=== PATIENT | female | born 1970 | race Two or more races ===

== ENCOUNTER 2019-04-18 08:56 | Emergency (ER) | payer BC ==
[~2019-04-18] VITALS: Ht 154.9 cm; Wt 83.2 kg
--- NOTE | 2019-04-18 09:24 | NUR ---
PT PRESENTS TO ED WITH C/O HEADACHE SINCE LAST NIGHT, AND MOMENTARY DIZZINESS PRIOR TO EMESIS THIS AM. PT NOW DENIES DIZZINESS, DENIES ABD PAIN, DENIES DYSURIA, DENIES FEVERS, DENIES SORE THROAT/COUGH. 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 EKG OBTAINED IN TRIAGE. ALL MONITORS IN PLACE. CALL LIGHT IN REACH. AWAITING MD AND DISPO.
[2019-04-18] MEDS ORDERED: KETOROLAC 60 MG/2 ML ONE (09:40)
[2019-04-18] MEDS ORDERED: PROMETHAZINE 25 MG/ML, 1ML ONE (09:40)
--- NOTE | 2019-04-18 09:50 | NUR ---
pt medicated per emar, toleated well.
[2019-04-18] MEDS ORDERED: PROMETHAZINE 25 MG/ML, 1ML IM ONE (10:00)
[2019-04-18] MEDS ORDERED: KETOROLAC 30 MG/1 ML IM ONE (10:00)
--- NOTE | 2019-04-18 10:35 | NUR ---
LISA Akhtar at bedside for recheck.
[2019-04-18 10:49] VITALS: BP 146/91
== END 2019-04-18 11:01 | disposition home or self-care (01) ==
LOC: ED 10:44
DX: R51 Headache (principal); R11.2 Nausea with vomiting, unspecified; R42 Dizziness and giddiness
CPT/HCPCS: 93005; 96372; 99284; J1885; J2550